=== PATIENT | female | born 1950 | race Caucasian/White ===

== ENCOUNTER → 2018-05-23 | Outpatient (CLI) | payer MEDICARE, OTHER ==
--- NOTE | 2018-05-23 12:29 | RADIOLOGY REPORT (SQ) ---
EXAM DESCRIPTION: U/S THYROID/SFT TISS HD NECK COMPLETED DATE/TIME: 05/23/2018 10:01 am REASON FOR STUDY: CALCIFICATION OF SOFT TISSUE M79.89 OTHER SPECIFIED SOFT TISSUE DISORDERS COMPARISON: None. TECHNIQUE: Dynamic and static fagan-scale images acquired of the thyroid gland. Selected additional c olor/power Doppler images recorded. All images stored to PACS. LIMITATIONS: None. FINDINGS: RIGHT LOBE: Normal size. Mildly heterogenous echotexture. No cystic or solid masses. LEFT LOBE: Normal size. Mildly heterogenous echotexture. No cystic or solid masses. ISTHMUS: Normal size. Mildly heterogenous echotexture. No cystic or solid masses. OTHER: No other significant finding. IMPRESSION: MILDLY HETEROGENOUS ECHOTEXTURE OF THE THYROID. NO FOCAL LESIONS. TECHNICAL DOCUMENTATION: JOB ID: [id number] [employer]- All Rights Reserved Reading location - IP/workstation name: [email or web address]
== END ==
LOC: RAD 09:21
PROVIDERS: ATTEND Family Medicine
DX: M79.89 Other specified soft tissue disorders (principal)
CPT/HCPCS: 76536

== ENCOUNTER → 2018-05-31 | Outpatient (CLI) | payer MEDICARE ==
--- NOTE | 2018-05-31 09:45 | RADIOLOGY REPORT (SQ) ---
EXAM DESCRIPTION: CT SOFT TISSUE NECK WITHOUT COMPLETED DATE/TIME: 05/31/2018 9:26 am REASON FOR STUDY: CALCIFICATION BILATERAL R AC CALCIFICATION M79.89 OTHER SPECIFIED SOFT TISSUE DIS ORDERS COMPARISON: Thyroid ultrasound 05/23/2018 TECHNIQUE: Noncontrast scanning from skull base through lung apices with review of bone, soft tissue and lung windows. Reconstructed coronal and sagittal MPR images reviewed. All images stored on PAC S. All CT scanners at this facility use dose modulation, iterative reconstruction, and/or weight based d osing when appropriate to reduce radiation dose to as low as reasonably achievable (ALARA). [facility]: Dose Right [facility]: CareDose [facility]: Dose Right [facility]: Teradose 4D [facility]: [employer] RADIATION DOSE: 16.9 mGy. LIMITATIONS: None. FINDINGS: SKULL BASE: Intact. MAJOR SALIVARY GLANDS: No solid or cystic masses. No inflammatory changes. LYMPHADENOPATHY: No adenopathy. MUCOSAL MASSES OR ASYMMETRY: No mucosal masses or asymmetry. LARYNX/CORDS: No abnormal findings. LUNG APICES: Clear. BONES: Disc space loss of height at C4-5 and C5-6 with moderate to marked left foraminal narrowing at these levels THYROID: Diffusely small, no discrete masses. PARANASAL SINUSES: Clear. OTHER: No other significant finding. IMPRESSION: Unremarkable CT neck soft tissues without contrast TECHNICAL DOCUMENTATION: JOB ID: [id number] Quality ID # [id number]: Final reports with documentation of one or more dose reduction techniques (e.g., Au tomated exposure control, adjustment of the mA and/or kV according to patient size, use of iterative reconstruction technique) 2010 [employer]- All Rights Reserved Reading location - IP/workstation name: [email or web address]
== END ==
LOC: RAD 09:08
PROVIDERS: ATTEND Family Medicine
DX: M79.89 Other specified soft tissue disorders (principal)
CPT/HCPCS: 70490

== ENCOUNTER → 2019-06-14 | Outpatient (CLI) | payer MEDICARE ==
--- NOTE | 2019-06-14 14:55 | WOMENS IMAGING REPORT ---
EXAM DESCRIPTION: BILAT SCREENING MAMMO W/CAD COMPLETED DATE/TIME: 06/14/2019 8:04 am REASON FOR STUDY: ROUTINE BILATERAL SCREENING;Z12.31 Z12.31 ENCNTR SCREEN MAMMOGRAM FOR MALIGNANT N EOPLASM OF GERARDO COMPARISON: 2012 EXAM PARAMETERS: Standard craniocaudal and mediolateral oblique views of each breast recorded using digital acquisition. Read with the assistance of CAD. .[employer] - [employer] Version 9.2 LIMITATIONS: None. FINDINGS: No suspicious masses, suspicious calcifications or architectural distortion. No areas of c oncern. IMPRESSION: Negative MAMMOGRAM. BIRADS 1 BREAST DENSITY: b. There are scattered areas of fibroglandular density. BIRAD: ASSESSMENT: 1 NEGATIVE RECOMMENDATION: ROUTINE SCREENING COMMENT: The patient has been notified of the results by letter per SA requirements. Additional no tification policies are in place for contacting patient with suspicious or incomplete findings. Quality ID #[id number]: The [employer] recommends an annual screening mammogram for women aged 40 years or over. This facility utilizes a reminder system to ensure that all patients receive reminder letters, and/or direct phone calls for appointments. This includes reminders for routine scr eening mammograms, diagnostic mammograms, or other Breast Imaging Interventions when appropriate. Th is patient will be placed in the appropriate reminder system. TECHNICAL DOCUMENTATION: FINDING NUMBER: (1) ASSESSMENT: (1) JOB ID: [id number] [employer]- All Rights Reserved Reading location - IP/workstation name: [id number]
== END ==
LOC: WI 07:43
PROVIDERS: ATTEND Family Medicine
DX: Z12.31 Encounter for screening mammogram for malignant neoplasm of breast (principal)
CPT/HCPCS: 77067

== ENCOUNTER → 2020-10-09 | Outpatient (CLI) | payer MEDICARE ==
--- NOTE | 2020-10-09 15:40 | RADIOLOGY REPORT (SQ) ---
EXAM DESCRIPTION: CT FACIAL AREA WITHOUT IMAGES COMPLETED DATE/TIME: 10/09/2020 3:03 pm REASON FOR STUDY: (H05.229)EDEMA OF UNSPECIFIED ORBIT H05.229 EDEMA OF UNSPECIFIED ORBIT COMPARISON: None. TECHNIQUE: Noncontrasted images through the facial bones and orbits windowed for bone and soft tissu e. Additional coronal and sagittal reconstructed images reviewed. All images stored on PACS. All CT scanners at this facility use dose modulation, iterative reconstruction, and/or weight based d osing when appropriate to reduce radiation dose to as low as reasonably achievable (ALARA). [facility]: Dose Right [facility]: CareDose [facility]: Dose Right [facility]: Teradose 4D [facility]: [employer] RADIATION DOSE: mGy. LIMITATIONS: None. FINDINGS: FACIAL BONES: No acute fracture or dislocation. Mandibular condyles, zygomatic arches and pterygopalatine plates are well aligned. ORBITS: Intact. No fracture. Symmetric intact globes and retroorbital soft tissues. No intraconal mass or fluid collection. Bilateral cataract surgery. PARANASAL SINUSES: Clear. No significant mucosal thickening, mass or fluid. No nasal polyps. Maxill wayne sinus outlets are patent. SOFT TISSUES: Mild subcutaneous stranding along the bifrontal soft tissues, right greater than left. INFERIOR BRAIN: Limited view. No acute findings. OTHER: No other significant finding. IMPRESSION: No evidence of acute bony abnormality or other acute significant finding to the face. Symmetric globes bilaterally. No evidence of intraconal mass or fluid collection. TECHNICAL DOCUMENTATION: JOB ID: [id number] Quality ID # [id number]: Final reports with documentation of one or more dose reduction techniques (e.g., Au tomated exposure control, adjustment of the mA and/or kV according to patient size, use of iterative reconstruction technique) 2010 [employer]- All Rights Reserved Reading location - IP/workstation name: [email or web address]
== END ==
LOC: RAD 14:45
PROVIDERS: ATTEND Family Medicine
DX: H05.229 Edema of unspecified orbit (principal)
CPT/HCPCS: 70486